=== PATIENT | male | born 1985 | race Caucasian/White ===

== ENCOUNTER 2016-03-13 01:41 | Emergency (ER) | payer BC, MEDICARE | END 2016-03-13 06:39 | disposition home or self-care (01) | LOC: ER 01:41 | CPT/HCPCS: 36415; 80053; 81003; 85025 ==

== ENCOUNTER 2016-04-10 23:58 | Emergency (ER) | payer BC, MEDICARE ==
[2016-04-11] MEDS ORDERED: ASPIRIN 81 MG CHEW TAB ONE (11:24)
== END 2016-04-11 11:40 | disposition home or self-care (01) ==
LOC: EEVIPCON 23:58 → ER 23:58
DX: F20.9 Schizophrenia, unspecified (principal); F10.120 Alcohol abuse with intoxication, uncomplicated
CPT/HCPCS: 36415; 80053; 80074; 80307; 80320; 80329; 81003; 84439; 84443; 85025; 85610

== ENCOUNTER 2016-04-14 03:17 | Emergency (ER) | payer BC, MEDICARE | END 2016-04-14 05:22 | disposition other institution (70) | LOC: ER 03:17 | DX: F20.0 Paranoid schizophrenia (principal) | CPT/HCPCS: 36415; 80053; 80307; 80320; 80329; 81003; 84439; 84443; 85025; 85610 ==